=== PATIENT | male | born 1955 | race Asian ===

== ENCOUNTER 2017-05-04 05:34 | Inpatient (IN) | payer OTHER ==
[~2017-05-04] VITALS: Ht 175.3 cm; Wt 78.5 kg
[2017-05-04] VITALS (31 sets, daily range): BP systolic 113–143; BP diastolic 61–92; PULSE 56–82; RESP 9–55; Ht 175.3 cm; Wt 78.5 kg
[2017-05-04] MEDS ORDERED: Metronidazole 500 MG in NS 100 ML IVPB ONE (07:00)
[2017-05-04] MEDS ORDERED: CARV12.598 PO (07:00)
[2017-05-04] MEDS ORDERED: RANO500T2 PO (07:00)
[2017-05-04] MEDS ORDERED: OMEP20CA16 PO (07:00)
[2017-05-04] MEDS ORDERED: CIPROFLOXACIN 400MG/D5W 200 ML IVPB ONE (07:00)
[2017-05-04] MEDS ORDERED: ROSU40TA35 PO (07:00)
[2017-05-04] MEDS ORDERED: ASPI-535 PO (07:00)
[2017-05-04] MEDS ORDERED: SOD CHLORIDE 0.9% 1,000 ML IV SCH (07:00)
[2017-05-04] MEDS ORDERED: BUPIVACAINE 0.25%/EPI (SDV) 30 ML INJ ONE (07:05)
[2017-05-04] MEDS ORDERED: LIDOCAINE 2% (SDV) 5 ML INJ ONE (07:53)
[2017-05-04] MEDS ORDERED: SUCCINYLCHOLINE CHLORIDE 100 MG/5 ML SYG IV ONE (07:53)
[2017-05-04] MEDS ORDERED: MIDAZOLAM 1 MG/ML 2 ML INJ ONE (07:53)
[2017-05-04] MEDS ORDERED: ROCURONIUM 50 MG INJ ONE ×2 (07:53→09:50)
[2017-05-04] MEDS ORDERED: PROPOFOL 20 ML ONE (07:53)
[2017-05-04] MEDS ORDERED: EPHEDrine SULFATE 50 MG/5 ML SYG ONE (08:22)
[2017-05-04] MEDS ORDERED: CIPROFLOXACIN 400MG/D5W 200 ML ONE (08:35)
[2017-05-04] MEDS ORDERED: DEXAMETHASONE 4 MG/ML 1 ML INJ ONE (08:44)
[2017-05-04] MEDS ORDERED: ONDANSETRON 4 MG INJ ONE (08:44)
[2017-05-04] MEDS ORDERED: FAMOTIDINE 20 MG INJ ONE (08:44)
[2017-05-04] MEDS ORDERED: BUPIVACAINE 0.25% (MPF) 30 ML INJ ONE (08:57)
[2017-05-04] MEDS ORDERED: GLYCOPYRROLATE 0.4 MG INJ ONE (10:04)
[2017-05-04] MEDS ORDERED: NEOSTIGMINE 3 MG/3 ML SYRINGE ONE (10:04)
[2017-05-04] MEDS ORDERED: PROCHLORPERAZINE 10 MG INJ IV PRN (11:30)
[2017-05-04] MEDS ORDERED: MEPERIDINE 25 MG INJ IV PRN (11:30)
[2017-05-04] MEDS ORDERED: FENTAnyl 50 MCG/ML VIAL IV PRN (11:30)
[2017-05-04] MEDS ORDERED: ONDANSETRON 4 MG INJ IV PRN (11:30)
[2017-05-04] MEDS ORDERED: DIPHENHYDRAMINE 50 MG INJ IV PRN (11:30)
[2017-05-04] MEDS ORDERED: HYDROmorphONE 2 MG/ML SYG ONE (11:32)
--- NOTE | 2017-05-04 11:57 | OPR ---
Date/Time of Note Date/Time of Note DATE: 05/04/17 TIME: 11:56 Operative Report Procedure Date: May 04, 2017 Preoperative Diagnosis unresectable distal gastric polyp Postoperative Diagnosis same Operation Performed lap distal gastrectomy with Baljinder en Y reconstruction Surgeon: Gian TEAGUE Specimens distal stomach Gian TEAGUE May 04, 2017 11:57
[2017-05-04 12:20] LABS: ADD UMIC YES; URINE BILIRUBIN (Dip) NEGATIVE (NEGATIVE); URINE BLOOD (Dip) TRACE (NEGATIVE); URINE COLOR LT. YELLOW (YELLOW); URINE GLUCOSE (Dip) NEGATIVE (NEGATIVE); URINE KETONES (Dip) NEGATIVE (NEGATIVE); URINE LEUKOCYTE ESTERASE (Dip) NEGATIVE (NEGATIVE); URINE NITRITE (Dip) NEGATIVE (NEGATIVE); URINE TOTAL PROTEIN (Dip) NEGATIVE (NEGATIVE); URINE UROBILINOGEN (Dip) 0.2 E.U./dL (0.1-1.0)
[2017-05-04 12:49] LABS: MUCUS,URINE OCCASIONAL; URINE RBCS 0-2 /HPF (0)
[2017-05-04] MEDS: HYDROmorphONE (0.2 MG/ML) 10ML SYG IV PRN ×4 (12:56→15:46)
--- NOTE | 2017-05-04 13:40 | OPR ---
DATE OF OPERATION: 05/04/2017 INDICATION: This is a 61-year-old male with an unresectable gastric polyp. He requests surgical ex cision. Risks, alternatives, benefits, and personnel were discussed with the patient. The patient expressed his understanding and consents to the operation. PREOPERATIVE DIAGNOSIS: Distal gastric polyp. POSTOPERATIVE DIAGNOSIS: Distal gastric polyp. OPERATION PERFORMED: Laparoscopic distal gastrectomy with Baljinder-en-Y reconstruction. SURGEON: Royal Deras MD SPECIMEN: Distal stomach. COMPLICATIONS: None. ANESTHESIA: General. PROCEDURE: The patient was taken to the OR and prepped and draped in the usual sterile fashion. A surgical time out was performed. IV antibiotics were given. Using a 12 mm optical trocar, optical entry was performed at the left upper periumbilical area after a transverse incision was made with a 15 blade. Pneumoperitoneum was established. Midepigastric 5 mm trocar, right mid clavicular subco stal 5 mm trocar, left midclavicular subcostal 12 mm optical trocar, left upper flank 5 mm optical t rocars were placed under direct visualization. Upon initial inspection, there was no evidence of an y external changes in the stomach. Laparoscopic Harmonic was used to divide the transverse colon fr om the omentum. The omentum was divided at the midpoint of the greater curvature. This omentum was also mobilized towards distally towards the duodenum. The gastroepiploic vessels were then divided anterior to the duodenum with a white load vascular load 45 Dillwyn stapler. The duodenum was then divided from the pylorus with a 45 Dillwyn white load vascular load stapler. The staple line was r einforced with a running 3-0 Vicryl. There was good hemostasis. The stomach was divided, the mid b loi with multiple fires of the blue load Dillwyn 45 stapler. The right gastric artery and vessels w ere divided from the celiac axis with multiple fires of the Dillwyn white load 45 stapler. The spec imen was set aside. Ligament of Treitz was identified. Approximately 40 to 50 cm distal to ligamen t of Treitz, the jejunum was divided using a 45 Dillwyn vascular load stapler. Two additional fires were used to free up the mesentery of the jejunum. The proximal staple line is marked with clips. The Baljinder-en-Y gastrojejunostomy anastomosis was first performed by placing 2 stay silk sutures from the stomach to the distal jejunum in a retrogastric fashion. Enterotomy and a gastrotomy were made with a laparoscopic Harmonic. Two fires of the 45 blue load Dillwyn stapler were performed through the gastrotomy and enterotomy to perform the gastrojejunostomy anastomosis. 3-0 silk sutures were used as stay sutures to close the gastrotomy and enterotomy. Multiple fires of blue load Dillwyn va scular load stapler were used to close the enterotomy. The staple line was reinforced with clips. This excess tissue was retrieved through the left upper quadrant 12 mm port. The biliopancreatic li mb was held with a grasper which was also marked with the clips. The drain was placed through the r ight subcostal port with a #19 Pedro Luis drain to drain the duodenal stump. Small midline incision was made for the extracorporeal portion. Wound protector was placed and the gastric antrum was removed and sent to pathology for intraoperative consult. The stomach was opened and examined and there was evidence of a gastric polyp with clear margins. The pathologist confirmed that there was no need f or proximal and distal margins as the margins were well free and clear of the polyp. The jejunojeju nostomy was then performed in an open fashion to the midline incision with a 2-layer technique. Ant rotomy was placed in the distal portion of the biliopancreatic limb and the jejunum after stay sutur es were placed to reapproximate in a [id number] fashion. Two fires of the 45 white load Dillwyn s tapler were used to perform the anastomosis. The enterotomy was closed in a 2-layer fashion with a running 3-0 PDS and interrupted 3-0 silk. There was good hemostasis. The fascia was then closed wi th a running 0 PDS from superior to inferior and inferior to superior and tied down. The wound was irrigated with Betadine. The skin was closed after all ports were removed under direct visualizatio n with skin marleni. Local anesthesia was injected to all incisions. Dry dressings were applied. Dictated By: ROYAL STARR/JEFFY Conf#: [id number] DID#: [id number]
[2017-05-04] MEDS: AMPICILLIN/SULB 3 GM/NS (PMX) 100 ML IVPB SCH ×2 (13:54→17:47)
[2017-05-04 16:42] LABS: ADD SCAN DIFF NO
[2017-05-04 16:44] LABS: BASOPHILS % 0.1 % (0.0-2.0); HEMATOCRIT 41.7 % (42.0-52.0); HEMOGLOBIN 13.8 g/dl (14.0-18.0); LYMPHOCYTES % 8.8 % (15.0-51.0); MEAN CORPUSCULAR HEMOGLOBIN 30.8 pg (29.0-33.0); MEAN CORPUSCULAR HGB CONC 33.1 g/dl (32.0-37.0); MEAN CORPUSCULAR VOLUME 93.1 fl (82.0-101.0); MEAN PLATELET VOLUME 10.5 fl (7.4-10.4); MONOCYTE # 0.6 10^3/ul (0.3-0.9); MONOCYTES % 4.7 % (0.0-11.0); NEUTROPHILS % 86.1 % (39.0-77.0); PLATELET COUNT 179 10^3/UL (140-415); RED BLOOD COUNT 4.48 10^6/ul (4.70-6.10); RED CELL DISTRIBUTION WIDTH 12.2 % (11.5-14.5); WHITE BLOOD COUNT 11.6 10^3/ul (4.8-10.8)
[2017-05-04 17:07] LABS: ALBUMIN/GLOBULIN RATIO 1.53; BILIRUBIN,INDIRECT 0.7 mg/dl (0-1.1); BILIRUBIN,TOTAL 0.7 mg/dl (0.2-1.3); CALCIUM 7.8 mg/dl (8.4-10.2); CREATININE 0.78 mg/dl (0.61-1.24); TOTAL PROTEIN 6.6 g/dl (6.1-8.1)
[2017-05-04] MEDS: D5W-0.45 NACL + KCL 20 MEQ 1,000 ML IV SCH (17:46)
--- NOTE | 2017-05-04 18:19 | HP ---
DATE OF ADMISSION: 05/04/2017 CHIEF COMPLAINT AND HISTORY OF PRESENT ILLNESS: The patient is a 61-year-old gentleman with history of coronary artery disease, status post CABG who was seen by Dr. Deras as an outpatient due to histor y of unresectable gastric polyp. The patient underwent laparoscopic subtotal gastrectomy and Baljinder- en-Y reconstruction. Patient also has a history of hypertension and dyslipidemia and was brought in to the hospital today and underwent laparoscopic distal gastrectomy with Baljinder-en-Y reconstruction. The patient denied any chest pain. No recent history of angina or congestive heart failure. No re ported headache, dizziness, syncope. No history of fever or chills. The patient does have postoper ative pain. No vomiting since surgery. The patient does not have any weakness in any extremity, an d is alert and responsive. REVIEW OF SYSTEMS: Unremarkable. PAST SURGICAL HISTORY: Status post CABG in 2005. SOCIAL HISTORY: Ex-smoker, quit 3 years ago. No alcohol abuse. FAMILY HISTORY: Noncontributory. ALLERGIES: NONE. PHYSICAL EXAMINATION: GENERAL: The patient is conscious, awake, alert. VITAL SIGNS: Temperature 98.6, pulse 72, respirations 14, blood pressure 119/66, O2 saturation 96% on 3 liters. HEENT: No eye discharge or redness. Extraocular movement intact. Oropharynx clear. NECK: No mass. CHEST: Fairly clear. CARDIOVASCULAR: S1, S2 normal, no murmur. ABDOMEN: The patient is status post surgery. EXTREMITIES: No edema. Pedal pulses palpable. SKIN: Without rash. NEUROLOGIC: The patient is awake, alert with no gross focal deficit. LABORATORY DATA: WBC 11.6, hemoglobin 13.8, platelets 179. Chem 18 unremarkable except for a calci um of 7.8. The rest of the chem 18 was normal. IMPRESSION: 1. Unresectable gastric polyp, status post laparoscopic distal gastrectomy with Baljinder-en-Y reconstru ction. 2. Coronary artery disease, status post coronary artery bypass graft in 2005. 3. Hypertension. 4. Dyslipidemia. PLAN: Patient admitted on medical floor. Patient is being kept n.p.o., will be given IV fluid, IV Protonix and symptomatic treatment. We will use SCD for deep venous thrombosis prophylaxis. The pa tient will receive IV Unasyn as per protocol. Once the patient is able to take p.o., he will be res tarted on his home medications including Coreg, Crestor, aspirin and omeprazole. The patient is abl e to take p.o. He will be started on Coreg and Crestor and aspirin. Further recommendations will de pend upon the patient's hospital course. Dictated By: ROSALINDA GREEN/JEFFY Conf#: [id number] DID#: [id number]
[2017-05-05] MEDS: AMPICILLIN/SULB 3 GM/NS (PMX) 100 ML IVPB SCH ×2 (00:13→05:43)
[2017-05-05] MEDS: HYDROmorphONE 1 MG/ML SYG IV PRN ×6 (00:27→21:50)
[2017-05-05] MEDS: D5W-0.45 NACL + KCL 20 MEQ 1,000 ML IV SCH ×4 (04:30→17:41)
[2017-05-05 05:35] LABS: ADD SCAN DIFF NO
[2017-05-05] MEDS: PANTOPRAZOLE 40 MG INJ IV SCH (05:43)
[2017-05-05 05:44] LABS: BASOPHILS % 0.1 % (0.0-2.0); HEMATOCRIT 39.9 % (42.0-52.0); HEMOGLOBIN 13.2 g/dl (14.0-18.0); LYMPHOCYTES # 1.9 10^3/ul (0.8-2.9); LYMPHOCYTES % 15.1 % (15.0-51.0); MEAN CORPUSCULAR HEMOGLOBIN 30.8 pg (29.0-33.0); MEAN CORPUSCULAR HGB CONC 33.1 g/dl (32.0-37.0); MEAN PLATELET VOLUME 10.5 fl (7.4-10.4); MONOCYTE # 1.3 10^3/ul (0.3-0.9); MONOCYTES % 10.3 % (0.0-11.0); NEUTROPHIL # 9.1 10^3/ul (1.6-7.5); NEUTROPHILS % 74.2 % (39.0-77.0); PLATELET COUNT 185 10^3/UL (140-415); RED BLOOD COUNT 4.29 10^6/ul (4.70-6.10); RED CELL DISTRIBUTION WIDTH 12.3 % (11.5-14.5); WHITE BLOOD COUNT 12.3 10^3/ul (4.8-10.8)
[2017-05-05 06:06] LABS: ALBUMIN 3.5 g/dl (3.3-4.9); ALBUMIN/GLOBULIN RATIO 1.4; BILIRUBIN,INDIRECT 0.9 mg/dl (0-1.1); BILIRUBIN,TOTAL 0.9 mg/dl (0.2-1.3); CALCIUM 7.7 mg/dl (8.4-10.2); CREATININE 0.82 mg/dl (0.61-1.24); POTASSIUM 4.1 mmol/L (3.5-5.1)
[2017-05-05 07:28] VITALS: BP 135/69; RESP 18
--- NOTE | 2017-05-05 14:06 | PN ---
Date/Time of Note Date/Time of Note DATE: 05/05/17 TIME: 14:05 Assessment/Plan VTE Prophylaxis VTE Prophylaxis Intervention: SCD's Lines/Catheters IV Catheter Type (from Nrs): Peripheral IV Urinary Cath still in place: Yes Reason Cath still needed: other (indicate) Assessment/Plan Chief Complaint/Hosp Course s/p lap distal gastrectomy with andry en y recon Problems: Assessment/Plan start clears and continue care Subjective 24 Hr Interval Summary Free Text/Dictation no issues, doing well Exam/Review of Systems Vital Signs Vitals Vital Signs Date Time Temp Pulse Resp B/P Pulse Ox O2 Delivery O2 Flow Rate FiO2 05/05/17 07:28 98.0 58 18 135/69 97 05/04/17 20:00 Nasal Cannula 2.0 Intake and Output 05/04/17 05/04/17 05/05/17 15:00 23:00 07:00 Intake Total 2100 ml 200 ml 1250 ml Output Total 317 ml 500 ml 2000 ml Balance 1783 ml -300 ml -750 ml Exam c/d/i Results Result Diagram: 05/05/17 0520 05/05/17 0520 Results 24 hrs Laboratory Tests Test 05/04/17 16:30 05/05/17 05:20 White Blood Count 11.6 H 12.3 H Red Blood Count 4.48 L 4.29 L Hemoglobin 13.8 L 13.2 L Hematocrit 41.7 L 39.9 L Mean Corpuscular Volume 93.1 93.0 Mean Corpuscular Hemoglobin 30.8 30.8 Mean Corpuscular Hemoglobin Concent 33.1 33.1 Red Cell Distribution Width 12.2 12.3 Platelet Count 179 185 Mean Platelet Volume 10.5 H 10.5 H Neutrophils % 86.1 H 74.2 Lymphocytes % 8.8 L 15.1 Monocytes % 4.7 10.3 Eosinophils % 0.0 0.0 Basophils % 0.1 0.1 Nucleated Red Blood Cells % 0.0 0.0 Neutrophils # 10.0 H 9.1 H Lymphocytes # 1.0 1.9 Monocytes # 0.6 1.3 H Eosinophils # 0.0 0.0 Basophils # 0.0 0.0 Nucleated Red Blood Cells # 0.0 0.0 Sodium Level 138 140 Potassium Level 4.0 4.1 Chloride Level 108 106 Carbon Dioxide Level 25 28 Anion Gap 9 10 Blood Urea Nitrogen 16 12 Creatinine 0.78 0.82 Glucose Level 135 121 Calcium Level 7.8 L 7.7 L Total Bilirubin 0.7 0.9 Direct Bilirubin 0.00 0.00 Indirect Bilirubin 0.7 0.9 Aspartate Amino Transf (AST/SGOT) 32 29 Alanine Aminotransferase (ALT/SGPT) 42 40 Alkaline Phosphatase 74 57 Total Protein 6.6 6.0 L Albumin 4.0 3.5 Globulin 2.60 2.50 Albumin/Globulin Ratio 1.53 1.40 Medications Medications Current Medications Hydromorphone HCl (Dilaudid) 0.5 mg Q2H PRN IV PAIN LEVEL 1-3 Last administered on 05/05/17 09:40; Admin Dose 0.5 MG; Start 05/04/17 at 12:00 Pantoprazole 40 mg 40 mg DAILY@06 IV Last administered on 05/05/17 05:43; Admin Dose 40 MG; Start 05/05/17 at 06:00 Potassium Chloride/Dextrose/ Sod Cl (D5-1/2ns + KCl 20 Meq) 1,000 ml @ 100 mls/ hr Q10H IV Last administered on 05/05/17 04:30; Admin Dose 100 MLS/HR; Start at 11:57 Gian TEAGUE May 05, 2017 14:06
[2017-05-05 19:16] VITALS: BP 155/83; RESP 20
--- NOTE | 2017-05-05 19:17 | PN ---
Date/Time of Note Date/Time of Note DATE: 05/05/17 TIME: 19:12 Assessment/Plan VTE Prophylaxis VTE Prophylaxis Intervention: SCD's Lines/Catheters [facility]): Peripheral IV Urinary Cath still in place: Yes Reason Cath still needed: urinary retention Assessment/Plan Chief Complaint/Hosp Course Patient started on clear liquid diet, denies nausea vomiting, complaints of pain , will increase Dilaudid dose. Problems: Assessment/Plan - Unresectable gastric polyp, status post laparoscopic distal gastrectomy with Baljinder-en-Y reconstruction. Advance diet per surgery. - Coronary artery disease, status post coronary artery bypass graft in 2005. - Hypertension. Patient is currently normotensive. - Dyslipidemia. Further recommendations based on clinical course. Plan of care discussed by Dr. Sandoval. Exam/Review of Systems Vital Signs Vitals Vital Signs Date Time Temp Pulse Resp B/P Pulse Ox O2 Delivery O2 Flow Rate FiO2 05/05/17 07:28 98.0 58 18 135/69 97 05/04/17 20:00 Nasal Cannula 2.0 Intake and Output 05/04/17 05/04/17 05/05/17 15:00 23:00 07:00 Intake Total 2100 ml 200 ml 1250 ml Output Total 317 ml 500 ml 2000 ml Balance 1783 ml -300 ml -750 ml Exam Constitutional: alert Head: normocephalic Neck: supple Respiratory: clear to auscultation Cardiovascular: nl pulses Gastrointestinal: other (Status post surgery) Extremities: normal pulses Results Result Diagram: 05/05/17 0520 05/05/17 0520 Results 24 hrs Laboratory Tests Test 05/05/17 05:20 White Blood Count 12.3 H Red Blood Count 4.29 L Hemoglobin 13.2 L Hematocrit 39.9 L Mean Corpuscular Volume 93.0 Mean Corpuscular Hemoglobin 30.8 Mean Corpuscular Hemoglobin Concent 33.1 Red Cell Distribution Width 12.3 Platelet Count 185 Mean Platelet Volume 10.5 H Neutrophils % 74.2 Lymphocytes % 15.1 Monocytes % 10.3 Eosinophils % 0.0 Basophils % 0.1 Nucleated Red Blood Cells % 0.0 Neutrophils # 9.1 H Lymphocytes # 1.9 Monocytes # 1.3 H Eosinophils # 0.0 Basophils # 0.0 Nucleated Red Blood Cells # 0.0 Sodium Level 140 Potassium Level 4.1 Chloride Level 106 Carbon Dioxide Level 28 Anion Gap 10 Blood Urea Nitrogen 12 Creatinine 0.82 Glucose Level 121 Calcium Level 7.7 L Total Bilirubin 0.9 Direct Bilirubin 0.00 Indirect Bilirubin 0.9 Aspartate Amino Transf (AST/SGOT) 29 Alanine Aminotransferase (ALT/SGPT) 40 Alkaline Phosphatase 57 Total Protein 6.0 L Albumin 3.5 Globulin 2.50 Albumin/Globulin Ratio 1.40 Medications Medications Current Medications Hydromorphone HCl (Dilaudid) 0.5 mg Q2H PRN IV PAIN LEVEL 1-3 Last administered on 05/05/17 17:50; Admin Dose 0.5 MG; Start 05/04/17 at 12:00 Pantoprazole 40 mg 40 mg DAILY@06 IV Last administered on 05/05/17 05:43; Admin Dose 40 MG; Start 05/05/17 at 06:00 Potassium Chloride/Dextrose/ Sod Cl (D5-1/2ns + KCl 20 Meq) 1,000 ml @ 100 mls/ hr Q10H IV Last administered on 05/05/17 15:23; Admin Dose 100 MLS/HR; Start at 11:57 MARK ANTHONY COULTER May 05, 2017 19:17
[2017-05-06] MEDS: HYDROmorphONE 1 MG/ML SYG IV PRN ×6 (01:40→19:35)
[2017-05-06] MEDS: D5W-0.45 NACL + KCL 20 MEQ 1,000 ML IV SCH ×2 (01:40→12:08)
[2017-05-06] MEDS: PANTOPRAZOLE 40 MG INJ IV SCH (05:32)
[2017-05-06 06:16] LABS: ADD SCAN DIFF NO
[2017-05-06 06:22] LABS: ABNORMAL IP MESSAGE 1; BASOPHILS % 0.1 % (0.0-2.0); EOSINOPHILS % 0.1 % (0.0-7.0); HEMATOCRIT 43.5 % (42.0-52.0); HEMOGLOBIN 14.2 g/dl (14.0-18.0); LYMPHOCYTES # 2.6 10^3/ul (0.8-2.9); LYMPHOCYTES % 18.9 % (15.0-51.0); MEAN CORPUSCULAR HEMOGLOBIN 31.1 pg (29.0-33.0); MEAN CORPUSCULAR HGB CONC 32.6 g/dl (32.0-37.0); MEAN CORPUSCULAR VOLUME 95.4 fl (82.0-101.0); MEAN PLATELET VOLUME 10.9 fl (7.4-10.4); MONOCYTE # 1.5 10^3/ul (0.3-0.9); MONOCYTES % 11.1 % (0.0-11.0); NEUTROPHIL # 9.5 10^3/ul (1.6-7.5); NEUTROPHILS % 69.4 % (39.0-77.0); PLATELET COUNT 181 10^3/UL (140-415); RED BLOOD COUNT 4.56 10^6/ul (4.70-6.10); RED CELL DISTRIBUTION WIDTH 12.6 % (11.5-14.5); WHITE BLOOD COUNT 13.7 10^3/ul (4.8-10.8)
[2017-05-06 06:55] LABS: CALCIUM 8.2 mg/dl (8.4-10.2); CREATININE 0.76 mg/dl (0.61-1.24); POTASSIUM 4.1 mmol/L (3.5-5.1)
[2017-05-06 07:49] VITALS: BP 145/72; RESP 16
--- NOTE | 2017-05-06 08:28 | PN ---
Date/Time of Note Date/Time of Note DATE: 05/06/17 TIME: 08:27 Assessment/Plan VTE Prophylaxis VTE Prophylaxis Intervention: SCD's Lines/Catheters IV Catheter Type (from Nrs): Peripheral IV Urinary Cath still in place: Yes Reason Cath still needed: other (indicate) Assessment/Plan Chief Complaint/Hosp Course s/p lap distal gastrectomy with andry en y recon Problems: Assessment/Plan doing well tolerating clears will advance to fulls Subjective 24 Hr Interval Summary Free Text/Dictation doing well, no issues Exam/Review of Systems Vital Signs Vitals Vital Signs Date Time Temp Pulse Resp B/P Pulse Ox O2 Delivery O2 Flow Rate FiO2 05/06/17 07:49 98.0 68 16 145/72 94 05/04/17 20:00 Nasal Cannula 2.0 Intake and Output 05/05/17 05/05/17 05/06/17 15:00 23:00 07:00 Intake Total 2050 ml 1300 ml Output Total 2090 ml 1875 ml Balance -40 ml -575 ml Exam c/d/i Results Result Diagram: 05/06/17 0520 05/06/17 0520 Results 24 hrs Laboratory Tests Test 05/06/17 05:20 White Blood Count 13.7 H Red Blood Count 4.56 L Hemoglobin 14.2 Hematocrit 43.5 Mean Corpuscular Volume 95.4 Mean Corpuscular Hemoglobin 31.1 Mean Corpuscular Hemoglobin Concent 32.6 Red Cell Distribution Width 12.6 Platelet Count 181 Mean Platelet Volume 10.9 H Neutrophils % 69.4 Lymphocytes % 18.9 Monocytes % 11.1 H Eosinophils % 0.1 Basophils % 0.1 Nucleated Red Blood Cells % 0.0 Neutrophils # 9.5 H Lymphocytes # 2.6 Monocytes # 1.5 H Eosinophils # 0.0 Basophils # 0.0 Nucleated Red Blood Cells # 0.0 Sodium Level 141 Potassium Level 4.1 Chloride Level 103 Carbon Dioxide Level 31 Anion Gap 11 Blood Urea Nitrogen 9 Creatinine 0.76 Glucose Level 107 Calcium Level 8.2 L Medications Medications Current Medications Pantoprazole 40 mg 40 mg DAILY@06 IV Last administered on 05/06/17t 05:32; Admin Dose 40 MG; Start 05/05/17 at 06:00 Potassium Chloride/Dextrose/ Sod Cl (D5-1/2ns + KCl 20 Meq) 1,000 ml @ 100 mls/ hr Q10H IV Last administered on 05/06/17 01:40; Admin Dose 100 MLS/HR; Start at 11:57 Hydromorphone HCl (Dilaudid) 1 mg Q3 PRN IV PAIN Last administered on 05/06/17 05:32; Admin Dose 1 MG; Start 05/05/17 at 21:00 Gian TEAGUE May 06, 2017 08:28
--- NOTE | 2017-05-06 16:46 | PN ---
Date/Time of Note Date/Time of Note DATE: 05/06/17 TIME: 16:44 Assessment/Plan VTE Prophylaxis VTE Prophylaxis Intervention: SCD's Lines/Catheters IV Catheter Type (from Nrs): Peripheral IV Urinary Cath still in place: Yes Reason Cath still needed: urinary retention Assessment/Plan Chief Complaint/Hosp Course Patient tolerates full liquid diet well, denies any nausea vomiting, complains of pain requiring every 3 hours Dilaudid, hypoactive bowel sounds, negative flatus, able to ambulate in the hallway. Assessment/Plan - Unresectable gastric polyp, status post laparoscopic distal gastrectomy with Baljinder-en-Y reconstruction. Advance diet per surgery. - Coronary artery disease, status post coronary artery bypass graft in 2005. - Hypertension. Patient is currently normotensive. - Dyslipidemia. Further recommendations based on clinical course. Plan of care discussed by Dr. Sandoval. Problems: Exam/Review of Systems Vital Signs Vitals Vital Signs Date Time Temp Pulse Resp B/P Pulse Ox O2 Delivery O2 Flow Rate FiO2 05/06/17 07:49 98.0 68 16 145/72 94 05/04/17 20:00 Nasal Cannula 2.0 Intake and Output 05/05/17 05/05/17 05/06/17 15:00 23:00 07:00 Intake Total 2050 ml 1300 ml Output Total 2090 ml 1875 ml Balance -40 ml -575 ml Exam Constitutional: alert Head: normocephalic Neck: supple Respiratory: clear to auscultation Cardiovascular: nl pulses Gastrointestinal: other (Status post surgery) Extremities: normal pulses Results Result Diagram: 05/06/17 0520 05/06/17 0520 Results 24 hrs Laboratory Tests Test 05/06/17 05:20 White Blood Count 13.7 H Red Blood Count 4.56 L Hemoglobin 14.2 Hematocrit 43.5 Mean Corpuscular Volume 95.4 Mean Corpuscular Hemoglobin 31.1 Mean Corpuscular Hemoglobin Concent 32.6 Red Cell Distribution Width 12.6 Platelet Count 181 Mean Platelet Volume 10.9 H Neutrophils % 69.4 Lymphocytes % 18.9 Monocytes % 11.1 H Eosinophils % 0.1 Basophils % 0.1 Nucleated Red Blood Cells % 0.0 Neutrophils # 9.5 H Lymphocytes # 2.6 Monocytes # 1.5 H Eosinophils # 0.0 Basophils # 0.0 Nucleated Red Blood Cells # 0.0 Sodium Level 141 Potassium Level 4.1 Chloride Level 103 Carbon Dioxide Level 31 Anion Gap 11 Blood Urea Nitrogen 9 Creatinine 0.76 Glucose Level 107 Calcium Level 8.2 L Medications Medications Current Medications Pantoprazole 40 mg 40 mg DAILY@06 IV Last administered on 05/06/17 05:32; Admin Dose 40 MG; Start 05/05/17 at 06:00 Potassium Chloride/Dextrose/ Sod Cl (D5-1/2ns + KCl 20 Meq) 1,000 ml @ 100 mls/ hr Q10H IV Last administered on 05/06/17 12:08; Admin Dose 100 MLS/HR; Start at 11:57 Hydromorphone HCl (Dilaudid) 1 mg Q3 PRN IV PAIN Last administered on 05/06/17 16:36; Admin Dose 1 MG; Start 05/05/17 at 21:00 MARK ANTHONY COULTER May 06, 2017 16:46
[2017-05-06 19:26] VITALS: BP 189/85; RESP 20
[2017-05-06 20:00] VITALS: BP 151/75; RESP 18
[2017-05-06] MEDS ORDERED: hydrALAzine 20 MG INJ IV PRN (22:00)
[2017-05-06] MEDS ORDERED: LEVALBUTEROL (NEB) 0.63 MG/3 ML AMP HHN PRN (22:00)
[2017-05-06] MEDS: ACETAMINOPHEN 500 MG TAB PO PRN (22:34)
[2017-05-06] MEDS: HYDROmorphONE 2 MG/ML SYG IV PRN (22:34)
[2017-05-07] MEDS: D5W-0.45 NACL + KCL 20 MEQ 1,000 ML IV SCH ×2 (01:55→21:23)
[2017-05-07] MEDS: HYDROmorphONE 2 MG/ML SYG IV PRN ×5 (02:06→21:13)
[2017-05-07 05:33] LABS: ADD SCAN DIFF NO
[2017-05-07] MEDS: PANTOPRAZOLE 40 MG INJ IV SCH (05:47)
[2017-05-07 06:02] LABS: ABNORMAL IP MESSAGE 1; BASOPHILS % 0.3 % (0.0-2.0); EOSINOPHILS # 0.1 10^3/ul (0.0-0.5); EOSINOPHILS % 0.7 % (0.0-7.0); HEMATOCRIT 40.4 % (42.0-52.0); HEMOGLOBIN 13.3 g/dl (14.0-18.0); LYMPHOCYTES % 18.4 % (15.0-51.0); MEAN CORPUSCULAR HEMOGLOBIN 30.7 pg (29.0-33.0); MEAN CORPUSCULAR HGB CONC 32.9 g/dl (32.0-37.0); MEAN CORPUSCULAR VOLUME 93.3 fl (82.0-101.0); MEAN PLATELET VOLUME 10.7 fl (7.4-10.4); MONOCYTE # 1.5 10^3/ul (0.3-0.9); MONOCYTES % 13.8 % (0.0-11.0); NEUTROPHIL # 7.3 10^3/ul (1.6-7.5); NEUTROPHILS % 66.3 % (39.0-77.0); PLATELET COUNT 184 10^3/UL (140-415); RED BLOOD COUNT 4.33 10^6/ul (4.70-6.10); RED CELL DISTRIBUTION WIDTH 12.1 % (11.5-14.5)
[2017-05-07 06:14] LABS: CALCIUM 8.2 mg/dl (8.4-10.2); CREATININE 0.73 mg/dl (0.61-1.24); POTASSIUM 3.5 mmol/L (3.5-5.1)
[2017-05-07 07:51] VITALS: BP 118/82; RESP 16
[2017-05-07] MEDS: RANOLAZINE (SR) 500 MG TAB PO SCH ×2 (08:41→21:13)
[2017-05-07] MEDS: GUAIFENESIN LA 600 MG TABSR PO SCH ×2 (08:41→21:13)
--- NOTE | 2017-05-07 16:34 | PN ---
Date/Time of Note Date/Time of Note DATE: 05/07/17 TIME: 16:30 Assessment/Plan Lines/Catheters IV [facility]ter Type (from [facility]): Peripheral IV Urinary Cath still in place: Yes Assessment/Plan Assessment/Plan - Unresectable gastric polyp, status post laparoscopic distal gastrectomy with Baljinder-en-Y reconstruction. Advance diet per surgery. - Coronary artery disease, status post coronary artery bypass graft in 2005. - Hypertension. Patient is currently normotensive. - Dyslipidemia. Further recommendations based on clinical course. Plan of care discussed by Dr. Sandoval. Subjective 24 Hr Interval Summary Free Text/Dictation resting in bed, able to tolerate full liquid diet , denies any nausea vomiting, complains of pain requiring every 3 hours Dilaudid, KOFFI draini hypoactive bowel sounds, negative flatus, able to ambulate in the hallway.dw staff Cardiovascular: no complaints Exam/Review of Systems Vital Signs Vitals Vital Signs Date Time Temp Pulse Resp B/P Pulse Ox O2 Delivery O2 Flow Rate FiO2 05/07/17 07:51 98.2 75 16 118/82 95 05/06/17 23:33 2.0 05/06/17 20:00 Room Air Intake and Output 05/06/17 05/06/17 05/07/17 14:59 22:59 06:59 Intake Total 600 ml 1700 ml 860 ml Output Total 470 ml 85 ml Balance 600 ml 1230 ml 775 ml Results Result Diagram: 05/07/17 0500 05/07/17 0510 Results 24 hrs Laboratory Tests Test 05/07/17 05:00 05/07/17 05:10 White Blood Count 11.0 H Red Blood Count 4.33 L Hemoglobin 13.3 L Hematocrit 40.4 L Mean Corpuscular Volume 93.3 Mean Corpuscular Hemoglobin 30.7 Mean Corpuscular Hemoglobin Concent 32.9 Red Cell Distribution Width 12.1 Platelet Count 184 Mean Platelet Volume 10.7 H Neutrophils % 66.3 Lymphocytes % 18.4 Monocytes % 13.8 H Eosinophils % 0.7 Basophils % 0.3 Nucleated Red Blood Cells % 0.0 Neutrophils # 7.3 Lymphocytes # 2.0 Monocytes # 1.5 H Eosinophils # 0.1 Basophils # 0.0 Nucleated Red Blood Cells # 0.0 Sodium Level 138 Potassium Level 3.5 Chloride Level 102 Carbon Dioxide Level 29 Anion Gap 11 Blood Urea Nitrogen 8 Creatinine 0.73 Glucose Level 110 Calcium Level 8.2 L Medications Medications Current Medications Pantoprazole 40 mg 40 mg DAILY@06 IV Last administered on 05/07/17 05:47; Admin Dose 40 MG; Start 05/05/17 at 06:00 Potassium Chloride/Dextrose/ Sod Cl (D5-1/2ns + KCl 20 Meq) 1,000 ml @ 60 mls/ hr [id number] IV Last administered on 05/07/17 01:55; Admin Dose 60 MLS/HR; Start 05/04/17 at 11:57 Hydromorphone HCl (Dilaudid) 1.5 mg Q3 PRN IV PAIN Last administered on 10:59; Admin Dose 1.5 MG; Start 05/06/17 at 22:00 Acetaminophen (Tylenol Tab) 500 mg Q4H PRN PO PAIN AND OR ELEVATED TEMP Last administered on 05/06/17 22:34; Admin Dose 500 MG; Start 05/06/17 at 22:00 Hydralazine HCl (Apresoline) 10 mg PRN PRN IV ELEVATED BLOOD PRESSURE; Start at 22:00 Guaifenesin (Mucinex) 600 mg BID PO Last administered on 05/07/17 08:41; Admin Dose 600 MG; Start 05/07/17 at 09:00 Carvedilol (Coreg) 12.5 mg BID PO Last administered on 05/07/17 08:42; Admin Dose 12.5 MG; Start 05/07/17 at 09:00 Ranolazine (Ranexa) 500 mg Q12 PO Last administered on 05/07/17 08:41; Admin Dose 500 MG; Start 05/07/17 at 09:00 ALEKSANDRA SKELTON May 07, 2017 16:34
[2017-05-07 20:11] VITALS: BP 143/81; RESP 18
[2017-05-08] MEDS: HYDROmorphONE 2 MG/ML SYG IV PRN ×5 (00:36→20:12)
[2017-05-08] MEDS: D5W-0.45 NACL + KCL 20 MEQ 1,000 ML IV SCH (02:56)
[2017-05-08 05:30] LABS: ADD SCAN DIFF NO
[2017-05-08 05:40] LABS: BASOPHILS % 0.3 % (0.0-2.0); EOSINOPHILS # 0.2 10^3/ul (0.0-0.5); EOSINOPHILS % 2.2 % (0.0-7.0); HEMATOCRIT 39.7 % (42.0-52.0); HEMOGLOBIN 13.3 g/dl (14.0-18.0); LYMPHOCYTES # 1.7 10^3/ul (0.8-2.9); MEAN CORPUSCULAR HEMOGLOBIN 31.1 pg (29.0-33.0); MEAN CORPUSCULAR HGB CONC 33.5 g/dl (32.0-37.0); MEAN CORPUSCULAR VOLUME 92.8 fl (82.0-101.0); MEAN PLATELET VOLUME 10.4 fl (7.4-10.4); MONOCYTE # 1.2 10^3/ul (0.3-0.9); MONOCYTES % 12.1 % (0.0-11.0); NEUTROPHIL # 6.9 10^3/ul (1.6-7.5); PLATELET COUNT 198 10^3/UL (140-415); RED BLOOD COUNT 4.28 10^6/ul (4.70-6.10); RED CELL DISTRIBUTION WIDTH 12.2 % (11.5-14.5); WHITE BLOOD COUNT 10.1 10^3/ul (4.8-10.8)
[2017-05-08 05:55] LABS: CALCIUM 8.7 mg/dl (8.4-10.2); CREATININE 0.78 mg/dl (0.61-1.24); POTASSIUM 3.7 mmol/L (3.5-5.1)
[2017-05-08] MEDS: PANTOPRAZOLE 40 MG INJ IV SCH (05:56)
[2017-05-08] MEDS: ACETAMINOPHEN 500 MG TAB PO PRN (05:58)
[2017-05-08 07:43] VITALS: BP 124/72; RESP 18
--- NOTE | 2017-05-08 09:28 | PN ---
Date/Time of Note Date/Time of Note DATE: 05/08/17 TIME: 09:27 Assessment/Plan VTE Prophylaxis VTE Prophylaxis Intervention: SCD's Lines/Catheters IV Catheter Type (from Nrs): Peripheral IV Urinary Cath still in place: Yes Reason Cath still needed: other (indicate) Assessment/Plan Chief Complaint/Hosp Course s/p lap distal gastrectomy with andry en y recon Problems: Assessment/Plan start gi soft dc drain Subjective 24 Hr Interval Summary Free Text/Dictation passing flatus, no bm, some nausea that is expected Exam/Review of Systems Vital Signs Vitals Vital Signs Date Time Temp Pulse Resp B/P Pulse Ox O2 Delivery O2 Flow Rate FiO2 05/08/17 07:43 97.5 60 18 124/72 92 05/06/17 23:33 2.0 05/06/17 20:00 Room Air Intake and Output 05/07/17 05/07/17 05/08/17 15:00 23:00 07:00 Intake Total 1160 ml 860 ml Output Total 60 ml 80 ml Balance 1100 ml 780 ml Exam c/d/i drain removed Results Result Diagram: 05/08/17 0510 05/08/17 0510 Results 24 hrs Laboratory Tests Test 05/08/17 05:10 White Blood Count 10.1 Red Blood Count 4.28 L Hemoglobin 13.3 L Hematocrit 39.7 L Mean Corpuscular Volume 92.8 Mean Corpuscular Hemoglobin 31.1 Mean Corpuscular Hemoglobin Concent 33.5 Red Cell Distribution Width 12.2 Platelet Count 198 Mean Platelet Volume 10.4 Neutrophils % 68.0 Lymphocytes % 17.0 Monocytes % 12.1 H Eosinophils % 2.2 Basophils % 0.3 Nucleated Red Blood Cells % 0.0 Neutrophils # 6.9 Lymphocytes # 1.7 Monocytes # 1.2 H Eosinophils # 0.2 Basophils # 0.0 Nucleated Red Blood Cells # 0.0 Sodium Level 139 Potassium Level 3.7 Chloride Level 103 Carbon Dioxide Level 28 Anion Gap 12 Blood Urea Nitrogen 10 Creatinine 0.78 Glucose Level 109 Calcium Level 8.7 Medications Medications Current Medications Pantoprazole 40 mg 40 mg DAILY@06 IV Last administered on 05/08/17t 05:56; Admin Dose 40 MG; Start 05/05/17 at 06:00 Potassium Chloride/Dextrose/ Sod Cl (D5-1/2ns + KCl 20 Meq) 1,000 ml @ 60 mls/ hr [id number] IV Last administered on 05/08/17 02:56; Admin Dose 60 MLS/HR; Start 05/04/17 at 11:57 Hydromorphone HCl (Dilaudid) 1.5 mg Q3 PRN IV PAIN Last administered on 06:00; Admin Dose 1.5 MG; Start 05/06/17 at 22:00 Acetaminophen (Tylenol Tab) 500 mg Q4H PRN PO PAIN AND OR ELEVATED TEMP Last administered on 05/08/17 05:58; Admin Dose 500 MG; Start 05/06/17 at 22:00 Hydralazine HCl (Apresoline) 10 mg PRN PRN IV ELEVATED BLOOD PRESSURE; Start at 22:00 Guaifenesin (Mucinex) 600 mg BID PO Last administered on 05/07/17 21:13; Admin Dose 600 MG; Start 05/07/17 at 09:00 Carvedilol (Coreg) 12.5 mg BID PO Last administered on 05/07/17 21:13; Admin Dose 12.5 MG; Start 05/07/17 at 09:00 Ranolazine (Ranexa) 500 mg Q12 PO Last administered on 05/07/17 21:13; Admin Dose 500 MG; Start 05/07/17 at 09:00 Gian TEAGUE May 08, 2017 09:28
[2017-05-08] MEDS: GUAIFENESIN LA 600 MG TABSR PO SCH ×2 (09:30→20:12)
[2017-05-08] MEDS: RANOLAZINE (SR) 500 MG TAB PO SCH ×2 (09:30→20:12)
--- NOTE | 2017-05-08 17:11 | PN ---
Date/Time of Note Date/Time of Note DATE: 05/08/17 TIME: 17:08 Assessment/Plan VTE Prophylaxis VTE Prophylaxis Intervention: SCD's Lines/Catheters IV Catheter Type (from [facility]): Peripheral IV Urinary Cath still in place: No Assessment/Plan Chief Complaint/Hosp Course Patient is started on soft diet, denies any nausea vomiting, positive flatus, status post KOFFI drain removal by surgery, pain is well controlled with Dilaudid. Assessment/Plan - Unresectable gastric polyp, status post laparoscopic distal gastrectomy with Baljinder-en-Y reconstruction. Advance diet per surgery. - Coronary artery disease, status post coronary artery bypass graft in 2005. - Hypertension. Continue Coreg. - Dyslipidemia. Further recommendations based on clinical course. Plan of care discussed by Dr. Sandoval. Problems: Exam/Review of Systems Vital Signs Vitals Vital Signs Date Time Temp Pulse Resp B/P Pulse Ox O2 Delivery O2 Flow Rate FiO2 05/08/17 07:43 97.5 60 18 124/72 92 05/06/17 23:33 2.0 05/06/17 20:00 Room Air Intake and Output 05/07/17 05/07/17 05/08/17 15:00 23:00 07:00 Intake Total 1160 ml 860 ml Output Total 60 ml 80 ml Balance 1100 ml 780 ml Exam Constitutional: alert Head: normocephalic Neck: supple Respiratory: clear to auscultation Cardiovascular: nl pulses Gastrointestinal: other (Status post surgery) Extremities: normal pulses Results Result Diagram: 05/08/17 0510 05/08/17 0510 Results 24 hrs Laboratory Tests Test 05/08/17 05:10 White Blood Count 10.1 Red Blood Count 4.28 L Hemoglobin 13.3 L Hematocrit 39.7 L Mean Corpuscular Volume 92.8 Mean Corpuscular Hemoglobin 31.1 Mean Corpuscular Hemoglobin Concent 33.5 Red Cell Distribution Width 12.2 Platelet Count 198 Mean Platelet Volume 10.4 Neutrophils % 68.0 Lymphocytes % 17.0 Monocytes % 12.1 H Eosinophils % 2.2 Basophils % 0.3 Nucleated Red Blood Cells % 0.0 Neutrophils # 6.9 Lymphocytes # 1.7 Monocytes # 1.2 H Eosinophils # 0.2 Basophils # 0.0 Nucleated Red Blood Cells # 0.0 Sodium Level 139 Potassium Level 3.7 Chloride Level 103 Carbon Dioxide Level 28 Anion Gap 12 Blood Urea Nitrogen 10 Creatinine 0.78 Glucose Level 109 Calcium Level 8.7 Medications Medications Current Medications Pantoprazole 40 mg 40 mg DAILY@06 IV Last administered on 05/08/17 05:56; Admin Dose 40 MG; Start 05/05/17 at 06:00 Potassium Chloride/Dextrose/ Sod Cl (D5-1/2ns + KCl 20 Meq) 1,000 ml @ 60 mls/ hr [id number] IV Last administered on 05/08/17 02:56; Admin Dose 60 MLS/HR; Start 05/04/17 at 11:57 Hydromorphone HCl (Dilaudid) 1.5 mg Q3 PRN IV PAIN Last administered on 15:02; Admin Dose 1.5 MG; Start 05/06/17 at 22:00 Acetaminophen (Tylenol Tab) 500 mg Q4H PRN PO PAIN AND OR ELEVATED TEMP Last administered on 05/08/17 05:58; Admin Dose 500 MG; Start 05/06/17 at 22:00 Hydralazine HCl (Apresoline) 10 mg PRN PRN IV ELEVATED BLOOD PRESSURE; Start at 22:00 Guaifenesin (Mucinex) 600 mg BID PO Last administered on 05/08/17 09:30; Admin Dose 600 MG; Start 05/07/17 at 09:00 Carvedilol (Coreg) 12.5 mg BID PO Last administered on 05/08/17 09:31; Admin Dose 12.5 MG; Start 05/07/17 at 09:00 Ranolazine (Ranexa) 500 mg Q12 PO Last administered on 05/08/17 09:30; Admin Dose 500 MG; Start 05/07/17 at 09:00 MARK ANTHONY COULTER May 08, 2017 17:11
[2017-05-08 19:37] VITALS: BP 132/71; RESP 20
[2017-05-09] MEDS: HYDROmorphONE 2 MG/ML SYG IV PRN ×6 (00:15→22:18)
[2017-05-09] MEDS: D5W-0.45 NACL + KCL 20 MEQ 1,000 ML IV SCH ×3 (02:12→23:20)
[2017-05-09] MEDS: PANTOPRAZOLE 40 MG INJ IV SCH (05:11)
[2017-05-09] MEDS: ACETAMINOPHEN 500 MG TAB PO PRN (05:17)
[2017-05-09 06:06] LABS: ADD SCAN DIFF NO
[2017-05-09 06:32] LABS: BASOPHILS % 0.2 % (0.0-2.0); EOSINOPHILS # 0.2 10^3/ul (0.0-0.5); EOSINOPHILS % 2.6 % (0.0-7.0); LYMPHOCYTES # 1.6 10^3/ul (0.8-2.9); LYMPHOCYTES % 19.9 % (15.0-51.0); MEAN CORPUSCULAR HEMOGLOBIN 30.4 pg (29.0-33.0); MEAN CORPUSCULAR HGB CONC 32.5 g/dl (32.0-37.0); MEAN CORPUSCULAR VOLUME 93.7 fl (82.0-101.0); MEAN PLATELET VOLUME 10.5 fl (7.4-10.4); MONOCYTE # 1.1 10^3/ul (0.3-0.9); MONOCYTES % 13.6 % (0.0-11.0); NEUTROPHIL # 5.2 10^3/ul (1.6-7.5); NEUTROPHILS % 63.2 % (39.0-77.0); PLATELET COUNT 218 10^3/UL (140-415); RED BLOOD COUNT 4.27 10^6/ul (4.70-6.10); RED CELL DISTRIBUTION WIDTH 12.2 % (11.5-14.5); WHITE BLOOD COUNT 8.2 10^3/ul (4.8-10.8)
[2017-05-09 07:23] LABS: CALCIUM 8.4 mg/dl (8.4-10.2); CREATININE 0.88 mg/dl (0.61-1.24); POTASSIUM 3.8 mmol/L (3.5-5.1)
[2017-05-09 08:10] VITALS: BP 126/70; RESP 18
[2017-05-09] MEDS: RANOLAZINE (SR) 500 MG TAB PO SCH ×2 (08:20→20:20)
[2017-05-09] MEDS: GUAIFENESIN LA 600 MG TABSR PO SCH ×2 (08:20→20:20)
[2017-05-09] MEDS ORDERED: MAGNESIUM HYDROXIDE 30ML CUP PO ONE (10:00)
--- NOTE | 2017-05-09 11:30 | PN ---
Date/Time of Note Date/Time of Note DATE: 05/09/17 TIME: 11:29 Assessment/Plan VTE Prophylaxis VTE Prophylaxis Intervention: other Lines/Catheters IV [facility] Peripheral IV Urinary Cath still in place: No Assessment/Plan Chief Complaint/Hosp Course - Unresectable gastric polyp, status post laparoscopic distal gastrectomy with Baljinder-en-Y reconstruction. Advance diet per surgery. - Coronary artery disease, status post coronary artery bypass graft in 2005. - Hypertension. Continue Coreg. - Dyslipidemia. Problems: Subjective 24 Hr Interval Summary Free Text/Dictation Patient complain of abdominal pain Exam/Review of Systems Vital Signs Vitals Vital Signs Date Time Temp Pulse Resp B/P Pulse Ox O2 Delivery O2 Flow Rate FiO2 05/09/17 08:10 97.7 56 18 126/70 95 05/06/17 23:33 2.0 05/06/17 20:00 Room Air Intake and Output 05/08/17 05/08/17 05/09/17 14:59 22:59 06:59 Intake Total 1340 ml 1060 ml Output Total 20 ml Balance -20 ml 1340 ml 1060 ml Exam Constitutional: well developed Head: atraumatic, normocephalic Neck: supple Respiratory: clear to auscultation Cardiovascular: regular rate and rhythm Gastrointestinal: soft, tender Extremities: normal pulses Results Result Diagram: 05/09/17 0537 05/09/17 0537 Results 24 hrs Laboratory Tests Test 05/09/17 05:37 05/09/17 07:28 White Blood Count 8.2 Red Blood Count 4.27 L Hemoglobin 13.0 L Hematocrit 40.0 L Mean Corpuscular Volume 93.7 Mean Corpuscular Hemoglobin 30.4 Mean Corpuscular Hemoglobin Concent 32.5 Red Cell Distribution Width 12.2 Platelet Count 218 Mean Platelet Volume 10.5 H Neutrophils % 63.2 Lymphocytes % 19.9 Monocytes % 13.6 H Eosinophils % 2.6 Basophils % 0.2 Nucleated Red Blood Cells % 0.0 Neutrophils # 5.2 Lymphocytes # 1.6 Monocytes # 1.1 H Eosinophils # 0.2 Basophils # 0.0 Nucleated Red Blood Cells # 0.0 Sodium Level 139 Potassium Level 3.8 Chloride Level 101 Carbon Dioxide Level 28 Anion Gap 14 Blood Urea Nitrogen 10 Creatinine 0.88 Glucose Level 102 Calcium Level 8.4 Lab Scanned Report REFERENCE LAB Medications Medications Current Medications Pantoprazole 40 mg 40 mg DAILY@06 IV Last administered on 05/09/17 05:11; Admin Dose 40 MG; Start 05/05/17 at 06:00 Potassium Chloride/Dextrose/ Sod Cl (D5-1/2ns + KCl 20 Meq) 1,000 ml @ 60 mls/ hr [id number] IV Last administered on 05/09/17 02:12; Admin Dose 60 MLS/HR; Start 05/04/17 at 11:57 Hydromorphone HCl (Dilaudid) 1.5 mg Q3 PRN IV PAIN Last administered on 10:10; Admin Dose 1.5 MG; Start 05/06/17 at 22:00 Acetaminophen (Tylenol Tab) 500 mg Q4H PRN PO PAIN AND OR ELEVATED TEMP Last administered on 05/09/17 05:17; Admin Dose 500 MG; Start 05/06/17 at 22:00 Hydralazine HCl (Apresoline) 10 mg PRN PRN IV ELEVATED BLOOD PRESSURE; Start at 22:00 Guaifenesin (Mucinex) 600 mg BID PO Last administered on 05/09/17 08:20; Admin Dose 600 MG; Start 05/07/17 at 09:00 Carvedilol (Coreg) 12.5 mg BID PO Last administered on 05/09/17 08:21; Admin Dose 12.5 MG; Start 05/07/17 at 09:00 Ranolazine (Ranexa) 500 mg Q12 PO Last administered on 05/09/17 08:20; Admin Dose 500 MG; Start 05/07/17 at 09:00 BOO MORA May 09, 2017 11:30
[2017-05-09 19:38] VITALS: BP 108/67; RESP 20
[2017-05-10] MEDS: HYDROmorphONE 2 MG/ML SYG IV PRN ×2 (03:35→11:46)
[2017-05-10] MEDS: PANTOPRAZOLE 40 MG INJ IV SCH (05:23)
[2017-05-10 07:25] VITALS: BP 112/65; RESP 16
[2017-05-10] MEDS: RANOLAZINE (SR) 500 MG TAB PO SCH ×2 (09:50→20:44)
[2017-05-10] MEDS: GUAIFENESIN LA 600 MG TABSR PO SCH ×2 (09:50→20:44)
--- NOTE | 2017-05-10 11:02 | PN ---
Date/Time of Note Date/Time of Note DATE: 05/10/17 TIME: 11:01 Assessment/Plan VTE Prophylaxis VTE Prophylaxis Intervention: other Lines/Catheters IV [facility] Type (from [facility]): Peripheral IV Urinary Cath still in place: No Assessment/Plan Chief Complaint/Hosp Course - Unresectable gastric polyp, status post laparoscopic distal gastrectomy with Baljinder-en-Y reconstruction. Advance diet per surgery. - Coronary artery disease, status post coronary artery bypass graft in 2005. - Hypertension. Continue Coreg. - Dyslipidemia. Problems: Subjective 24 Hr Interval Summary Free Text/Dictation Patient complain of some abdominal pain Exam/Review of Systems Vital Signs Vitals Vital Signs Date Time Temp Pulse Resp B/P Pulse Ox O2 Delivery O2 Flow Rate FiO2 05/10/17 07:25 97.5 57 16 112/65 95 05/06/17 23:33 2.0 05/06/17 20:00 Room Air Intake and Output 05/09/17 05/09/17 05/10/17 15:00 23:00 07:00 Intake Total 820 ml 1380 ml Balance 820 ml 1380 ml Exam Constitutional: well developed Head: atraumatic, normocephalic Neck: supple Respiratory: clear to auscultation Cardiovascular: regular rate and rhythm Gastrointestinal: non-tender, soft Extremities: normal pulses Results Result Diagram: 05/09/1753605/09/17536 Medications Medications Current Medications Pantoprazole 40 mg 40 mg DAILY@06 IV Last administered on 05/10/17 05:23; Admin Dose 40 MG; Start 05/05/17 at 06:00 Potassium Chloride/Dextrose/ Sod Cl (D5-1/2ns + KCl 20 Meq) 1,000 ml @ 60 mls/ hr [id number] IV Last administered on 05/09/17 20:21; Admin Dose 60 MLS/HR; Start 05/04/17 at 11:57 Hydromorphone HCl (Dilaudid) 1.5 mg Q3 PRN IV PAIN Last administered on 03:35; Admin Dose 1.5 MG; Start 05/06/17 at 22:00 Acetaminophen (Tylenol Tab) 500 mg Q4H PRN PO PAIN AND OR ELEVATED TEMP Last administered on 05/09/17 05:17; Admin Dose 500 MG; Start 6/7/17 at 22:00 Hydralazine HCl (Apresoline) 10 mg PRN PRN IV ELEVATED BLOOD PRESSURE; Start at 22:00 Guaifenesin (Mucinex) 600 mg BID PO Last administered on 05/10/17 09:50; Admin Dose 600 MG; Start 05/07/17 at 09:00 Carvedilol (Coreg) 12.5 mg BID PO Last administered on 05/10/17 09:50; Admin Dose 12.5 MG; Start 05/07/17 at 09:00 Ranolazine (Ranexa) 500 mg Q12 PO Last administered on 05/10/17 09:50; Admin Dose 500 MG; Start 05/07/17 at 09:00 BOO MORA May 10, 2017 11:02
[2017-05-10] MEDS: HYDROCODONE/APAP (5/325) TAB PO PRN (16:13)
[2017-05-10] MEDS: D5W-0.45 NACL + KCL 20 MEQ 1,000 ML IV SCH (16:39)
[2017-05-10] MEDS: HYDROmorphONE 1 MG/ML SYG IV PRN ×2 (18:33→22:32)
[2017-05-10 19:26] VITALS: BP 104/64; RESP 18
[2017-05-11] MEDS: HYDROmorphONE 1 MG/ML SYG IV PRN ×2 (03:31→10:49)
[2017-05-11] MEDS ORDERED: PANTOPRAZOLE (EC) 40 MG TAB PO SCH (06:00)
[2017-05-11 07:35] VITALS: BP 102/56; RESP 18
--- NOTE | 2017-05-11 07:41 | PN ---
DATE: 05/10/2017 Status post distal gastrectomy for unresectable polyp of the antrum. SUBJECTIVE: Complained of some dizziness today, but has been walking around. OBJECTIVE GENERAL: Awake, alert, oriented x3. VITAL SIGNS: Temperature 97.5, heart rate 67, respirations 16, blood pressure 102/65, saturation 95% on room air. ABDOMEN: Soft. The patient has some wounds that are clean. Patient has had a bowel movement today and tolerating diet. ASSESSMENT: The patient is day #6 status post laparoscopic distal gasterectomy and Baljinder-en-Y bypass construction. The patient is doing fine; tolerating a diet, pain is under control and had a bowel movement today. PLAN: Continue current care and probably will be a candidate to be discharged soon. Dictated By: OBED NATH MD PS/NTS Conf#: [id number] DID#: [id number] CC: ROSALINDA RAYO MD;*EndCC* MTDD
[2017-05-11] MEDS: D5W-0.45 NACL + KCL 20 MEQ 1,000 ML IV SCH (08:20)
[2017-05-11] MEDS: RANOLAZINE (SR) 500 MG TAB PO SCH (08:21)
[2017-05-11] MEDS: GUAIFENESIN LA 600 MG TABSR PO SCH (08:21)
[2017-05-11] MEDS: HYDROCODONE/APAP (5/325) TAB PO PRN (10:55)
--- NOTE | 2017-05-11 12:53 | PN ---
Date/Time of Note Date/Time of Note DATE: 05/11/17 TIME: 12:52 Assessment/Plan VTE Prophylaxis VTE Prophylaxis Intervention: SCD's Lines/Catheters IV Catheter Type (from Nrs): Peripheral IV Urinary Cath still in place: No Assessment/Plan Chief Complaint/Hosp Course s/p lap distal gastrectomy with andry en y recon Problems: Assessment/Plan dc home Subjective 24 Hr Interval Summary Free Text/Dictation doing well no issues, had bm Exam/Review of Systems Vital Signs Vitals Vital Signs Date Time Temp Pulse Resp B/P Pulse Ox O2 Delivery O2 Flow Rate FiO2 05/11/17 07:35 98.7 55 18 102/56 93 Intake and Output 05/10/17 05/10/17 05/11/17 15:00 23:00 07:00 Intake Total 1270 ml 1120 ml Balance 1270 ml 1120 ml Exam c/d/i Results Result Diagram: 05/09/17 0537 05/09/17 0537 Gian TEAGUE May 11, 2017 12:53
== END 2017-05-11 12:30 | disposition home or self-care (01) | DRG 328 ==
LOC: REC 05:34 → EDBD 05:34 → MS2 16:52
PROVIDERS: ADMIT Internal Medicine; ATTEND Surgery
PROC: 0DB64ZZ Excision of Stomach, Percutaneous Endoscopic Approach (ICD-10-PCS; 2017-05-04)
PROC: 0DB94ZZ Excision of Duodenum, Percutaneous Endoscopic Approach (ICD-10-PCS; 2017-05-04)
PROC: 0D164ZA Bypass Stomach to Jejunum, Percutaneous Endoscopic Approach (ICD-10-PCS; principal; 2017-05-04 07:30)
DX: C16.3 Malignant neoplasm of pyloric antrum (principal); I10 Essential (primary) hypertension; I25.10 Atherosclerotic heart disease of native coronary artery without angina pectoris; E78.5 Hyperlipidemia, unspecified; Z87.891 Personal history of nicotine dependence; Z95.1 Presence of aortocoronary bypass graft
CPT/HCPCS: 80048; 80053; 81001; 85025; 87086; 88309; 88312; C9113; J0295; J0744; J1100; J1170; J1644; J2250; J2405; J2710; J3010; J3480; J7030; J7999